=== PATIENT | female | born 1995 | race African-American/Black ===

== ENCOUNTER 2016-11-14 04:05 | Emergency (ER) | payer OTHER ==
[~2016-11-14] VITALS: Ht 167.6 cm; Wt 72.6 kg
[2016-11-14 05:11] LABS: BILIRUBIN,URINE NEGATIVE (NEG); GLUCOSE,URINE NEGATIVE (NEG); NITRITE,URINE NEGATIVE (NEG); PROTEIN,URINE NEGATIVE (NEG-TRACE); UROBILINOGEN,URINE 0.2 mg/dL (0.2 mg/dL)
[2016-11-14 05:17] LABS: RBC,URINE 0 /HPF (0-2); SQUAMOUS EPITHELIAL CELL,UR MOD /LPF; WBC,URINE 0 /HPF (0-4)
[2016-11-14 05:18] LABS: BACTERIA,URINE FEW /HPF (0-FEW)
[2016-11-14 05:35] LABS: BASO % 1 % (0-3); EOS % 1 % (0-3); HEMATOCRIT 39.1 % (36.0-47.0); HEMOGLOBIN 13.6 g/dL (12.0-15.5); LYMPH # 3.9 x10^3/uL (1.0-4.8); LYMPH % 43 % (24-48); MEAN CORPUSCULAR HEMOGLOBIN 32 pg (25-35); MEAN CORPUSCULAR HGB CONC 35 g/dL (31-37); MEAN CORPUSCULAR VOLUME 92 fL (79-100); MONO % 5 % (0-9); NEUT % 51 % (31-73); PLATELET COUNT 192 x10^3/uL (140-400); RED BLOOD COUNT 4.24 x10^6/uL (3.50-5.40); RED CELL DISTRIBUTION WIDTH 13.3 % (11.5-14.5)
[2016-11-14 05:37] LABS: BARBITURATES NEG (NEG); BENZODIAZEPINES NEG (NEG); CANNABINOIDS POS (NEG); COCAINE NEG (NEG); METHADONE NEG (NEG); OPIATES NEG (NEG); PHENCYCLIDINE NEG (NEG)
[2016-11-14 05:58] LABS: ALBUMIN 3.6 g/dL (3.4-5.0); ALBUMIN/GLOBULIN RATIO 1.1 (1.0-1.7); CALCIUM 8.9 mg/dL (8.5-10.1); CREATININE 0.9 mg/dL (0.6-1.0); GFR 93.9; TOTAL BILIRUBIN 0.1 mg/dL (0.2-1.0); TOTAL PROTEIN 6.8 g/dL (6.4-8.2)
[2016-11-14 06:01] LABS: POTASSIUM 3.3 mmol/L (3.5-5.1)
--- NOTE | 2016-11-14 06:16 | EKG ---
[facility] [address] [place] [address] Test Date: 2016-11-14 Test Time: 05:17:18 Pat Name: ELOY MCKENNA Department: Room: Gender: F Horticulture Worker: : 1995 Requested By: DEIDRE PEREZ Order Number: [id number] Reading MD: Jesus Euceda Measurements Intervals [place] Rate: 80 P: 46 [place]: 164 QRS: 37 QRSD: 78 T: 41 QT: 362 QTc: 421 Interpretive Statements SINUS RHYTHM Electronically Signed On 11-21-2016 11:26:34 CDT by Jesus Euceda
[2016-11-14 06:30] VITALS: BP 101/54
[2016-11-14] MEDS ORDERED: POTASSIUM CHLORIDE 20 MEQ/15 ML ORAL LIQUID. PO ONE (06:30)
--- NOTE | 2016-11-14 08:01 | ED.ADGEN ---
Past Medical History Past Medical History: Diabetes-Type II, Other Additional Past Medical Histor: BACK AND SHOULDER PAIN Past Surgical History: Alcohol Use: None Drug Use: None Adult General Chief Complaint Chief Complaint: HYPOGLYCEMIA HPI HPI Patient is a 21 year old woman, history of type 1 diabetes mellitus, for which she uses an insulin pump, who presents the emergency department via EMS with report of hypoglycemia. Per EMS report, the patient reported to the nurse at her place of employment, and stated that she was feeling shaky. Patient's blood glucose was noted to be 32 at that time. Patient did receive oral glucose solution, repeat blood sugar was in the 40s. Patient received a second oral glucose from EMS. Patient remained alert and oriented 4 throughout this episode , is denying any inciting factors are events, states that since she has started working, she has been experiencing low blood sugars rather frequently, has not yet followed up with her primary care provider for adjustment of her insulin pump. She denies any chest pain or shortness breath, fevers or chills, any nausea or vomiting, any weakness, numbness, tingling, urinary complaints, possibility of , or other concerning history. States she is feeling well this time, is eating a box lunch in the emergency department. Review of Systems Review of Systems Constitutional: Denies fever or chills. [] Generalized weakness and shakiness, consistent with previous episodes of hypoglycemia. Eyes: Denies change in visual acuity. [] HENT: Denies nasal congestion or sore throat. [] Respiratory: Denies cough or shortness of breath. [] Cardiovascular: Denies chest pain or edema. [] GI: Denies abdominal pain, nausea, vomiting, bloody stools or diarrhea. [] : Denies dysuria. [] Musculoskeletal: Denies back pain or joint pain. [] Integument: Denies rash. [] Neurologic: Denies headache, focal weakness or sensory changes. [] Endocrine: Denies polyuria or polydipsia. [] Lymphatic: Denies swollen glands. [] Psychiatric: Denies depression or anxiety. [] Current Medications Current Medications Current Medications Medications (Trade) Dose Ordered Sig/Ruchi Start Time Stop Time Status Last Admin Dose Admin Potassium Chloride (KCl Oral Soln) 40 meq 1X ONCE 11/14/16 06:30 11/14/16 06:31 DC 11/14/16 06:42 40 MEQ Allergies Allergies Allergies Coded Allergies Type Severity Reaction Last Updated Verified No Known Drug Allergies 11/24/14 No Physical Exam Physical Exam Constitutional: Well developed, well nourished, no acute distress, non-toxic appearance. [] HENT: Normocephalic, atraumatic, bilateral external ears normal, oropharynx moist, no oral exudates, nose normal. [] Eyes: PERRLA, EOMI, conjunctiva normal, no discharge. [] Neck: Normal range of motion, no tenderness, supple, no stridor. [] Cardiovascular:Heart rate regular rhythm, no murmur, S1, S2, no rubs or gallops. [] Lungs & Thorax: Bilateral breath sounds clear to auscultation, no wheezing, rhonchi, rales. No chest or crepitus or tenderness. [] Abdomen: Bowel sounds normal, soft, no tenderness, no masses, no rebound, rigidity, no guarding, no pulsatile masses. [] Skin: Warm, dry, no erythema, no rash. [] Back: No tenderness, no CVA tenderness. [] Extremities: No tenderness, no cyanosis, no clubbing, ROM intact, no edema. Negative Homans sign. [] Neurologic: Alert and oriented X 3, normal motor function, normal sensory function, no focal deficits noted. [] Psychologic: Affect normal, judgement normal, mood normal. [] Current Patient Data Vital Signs Vital Signs Date Time Temp Pulse Resp B/P (MAP) Pulse Ox O2 Delivery O2 Flow Rate FiO2 11/14/16 06:30 86 22 101/54 (70) 99 Room Air 11/14/16 04:07 97.6 97.6 Lab Values Laboratory Tests Test 11/14/16 04:13 11/14/16 04:48 11/14/16 05:15 POC Urine HCG, Qualitative Hcg negative (Negative) Urine Collection Type Unknown Urine Color Yellow Urine Clarity Clear Urine pH 6.0 Urine Specific [place] 1.015 Urine Protein Negative mg/dL (NEG-TRACE) Urine Glucose (UA) Negative mg/dL (NEG) Urine Ketones (Stick) Negative mg/dL (NEG) Urine Blood Negative (NEG) Urine Nitrite Negative (NEG) Urine Bilirubin Negative (NEG) Urine Urobilinogen Dipstick 0.2 mg/dL (0.2 mg/dL) Urine Leukocyte Esterase Negative (NEG) Urine RBC 0 /HPF (0-2) Urine WBC 0 /HPF (0-4) Urine Squamous Epithelial Cells Mod /LPF Urine Bacteria Few /HPF (0-FEW) Urine Opiates Screen Neg (NEG) Urine Methadone Screen Neg (NEG) Urine Barbiturates Neg (NEG) Urine Phencyclidine Screen Neg (NEG) Urine Amphetamine/Methamphetamine Neg (NEG) Urine Benzodiazepines Screen Neg (NEG) Urine Cocaine Screen Neg (NEG) Urine Cannabinoids Screen Pos (NEG) Urine Ethyl Alcohol Neg (NEG) White Blood Count 9.0 x10^3/uL (4.0-11.0) Red Blood Count 4.24 x10^6/uL (3.50-5.40) Hemoglobin 13.6 g/dL (12.0-15.5) Hematocrit 39.1 % (36.0-47.0) Mean Corpuscular Volume 92 fL (79-100) Mean Corpuscular Hemoglobin 32 pg (25-35) Mean Corpuscular Hemoglobin Concent 35 g/dL (31-37) Red Cell Distribution Width 13.3 % (11.5-14.5) Platelet Count 192 x10^3/uL (140-400) Neutrophils (%) (Auto) 51 % (31-73) Lymphocytes (%) (Auto) 43 % (24-48) Monocytes (%) (Auto) 5 % (0-9) Eosinophils (%) (Auto) 1 % (0-3) Basophils (%) (Auto) 1 % (0-3) Neutrophils # (Auto) 4.6 x10^3uL (1.8-7.7) Lymphocytes # (Auto) 3.9 x10^3/uL (1.0-4.8) Monocytes # (Auto) 0.5 x10^3/uL (0.0-1.1) Eosinophils # (Auto) 0.1 x10^3/uL (0.0-0.7) Basophils # (Auto) 0.0 x10^3/uL (0.0-0.2) Sodium Level 140 mmol/L (136-145) Potassium Level 3.3 mmol/L (3.5-5.1) L Chloride Level 101 mmol/L (98-107) Carbon Dioxide Level 29 mmol/L (21-32) Anion Gap 10 (6-14) Blood Urea Nitrogen 9 mg/dL (7-20) Creatinine 0.9 mg/dL (0.6-1.0) Estimated GFR (Cockcroft-Gault) 93.9 BUN/Creatinine Ratio 10 (6-20) Glucose Level 131 mg/dL (70-99) H Calcium Level 8.9 mg/dL (8.5-10.1) Total Bilirubin 0.1 mg/dL (0.2-1.0) L Aspartate Amino Transferase (AST) 15 U/L (15-37) Alanine Aminotransferase (ALT) 15 U/L (14-59) Alkaline Phosphatase 72 U/L (46-116) Total Protein 6.8 g/dL (6.4-8.2) Albumin 3.6 g/dL (3.4-5.0) Albumin/Globulin Ratio 1.1 (1.0-1.7) Laboratory Tests 11/14/16 05:15 Laboratory Tests 11/14/16 05:15 EKG EKG EC: Sinus rhythm, heart rate 80 beats are minute, upright axis, QTC of 421, VA 164, QRS is 78, no ST elevations or depressions, mild baseline artifact noted, as interpreted by me. [] Radiology/Procedures Radiology/Procedures Not indicated.[] Course & Med Decision Making Course & Med Decision Making Pertinent Labs and Imaging studies reviewed. (See chart for details) Patient's insulin pump discontinued upon arrival to the emergency department. Patient alert and oriented, denying all complaints in the emergency department, stating that she's been having episodes of hypoglycemia recently, since she began working. Patient denies any other concerning symptoms or complaints. Patient is taking by mouth without issue in the ED. Repeat Accu-Chek is 131, laboratory studies obtained which not reveal any concerning findings, test was negative, as was urinalysis. Repeat Accu-Chek after eating a box lunch an additional snack in the ED was 217. Patient was instructed to reinitiate her insulin pump at this time. Patient instructed to follow-up with her primary care provider today to schedule prompt evaluation for adjustment of her insulin pump as needed as she's been experiencing these episodes of hypoglycemia. Patient voiced understanding and agreement, was discharged home in stable condition with plan, instructions, and precautions as discussed. Dragon Disclaimer Dragon Disclaimer This electronic medical record was generated, in whole or in part, using a voice recognition dictation system. Departure Impression: Primary Impression: Hypoglycemia Additional Impression: Type 1 diabetes mellitus Disposition: HOME, SELF-CARE Condition: IMPROVED Problem Qualifiers DEIDRE PEREZ DO Nov 14, 2016 08:01
== END 2016-11-14 07:02 | disposition home or self-care (01) ==
LOC: ER 04:05
DX: E10.649 Type 1 diabetes mellitus with hypoglycemia without coma (principal); R53.1 Weakness; Z96.41 Presence of insulin pump (external) (internal)
CPT/HCPCS: 36415; 80053; 80307; 81001; 81025; 82962; 85025; 93005; 99285-25; G0479

== ENCOUNTER 2016-12-04 09:05 | Emergency (ER) | payer OTHER ==
[~2016-12-04] VITALS: Ht 162.6 cm; Wt 80.7 kg
[2016-12-04] MEDS ORDERED: IV NORMAL SALINE 1000ML BAG 1,000 ML IV SCH (09:53)
--- NOTE | 2016-12-04 09:57 | PHYS DOC ---
Past Medical History Past Medical History: Diabetes-Type II, Other Additional Past Medical Histor: BACK AND SHOULDER PAIN Past Surgical History: Alcohol Use: None Drug Use: None Adult General Chief Complaint Chief Complaint: MULTIPLE COMPLAINTS HPI HPI Patient is a 21 year old female who presents with complaint of abdominal pain and vomiting. The patient's symptoms have been present for over the past day but worsened this morning. Patient states that she is having severe pain along her lower abdomen that radiates into her pelvis. Patient notes that she has been having yellow thick discharge from her vagina. Patient also has been having vomiting and has been unable to tolerate solids or liquids. Patient states that she is diabetic and her blood sugar has been running high over the past 2-3 days. Patient states that she takes NovoLog and is also on an insulin pump. Patient rates the pain as 10 out of 10. Patient has not taken any medications to help with her symptoms. Review of Systems Review of Systems Constitutional: Subjective fever, chills[] Eyes: Denies change in visual acuity, redness, or eye pain [] HENT: Denies nasal congestion or sore throat [] Respiratory: Denies cough or shortness of breath [] Cardiovascular: Denies chest pain or edema[] GI: Nausea, vomiting, lower abdominal pain, denies bloody stools or diarrhea [] : Dysuria, vaginal discharge[] Musculoskeletal: Denies back pain or joint pain [] Integument: Denies rash or skin lesions [] Neurologic: Denies headache, focal weakness or sensory changes [] Current Medications Current Medications Current Medications Medications (Trade) Dose Ordered Sig/Ruchi Start Time Stop Time Status Last Admin Dose Admin Fentanyl Citrate (Fentanyl 2ml Vial) 50 mcg PRN Q15MIN PRN 12/04/16 10:00 12/05/16 09:59 12/04/16 10:27 50 MCG Ondansetron HCl (Zofran) 4 mg 1X ONCE 12/04/16 10:00 12/04/16 10:01 DC 12/04/16 10:25 4 MG Sodium Chloride 1,000 ml @ 1,000 mls/hr Q1H 12/04/16 09:53 12/04/16 10:52 DC 12/04/16 10:24 1,000 MLS/HR Valacyclovir HCl (Valtrex) 1,000 mg 1X STAT 12/04/16 10:45 12/04/16 10:49 DC Allergies Allergies Allergies Coded Allergies Type Severity Reaction Last Updated Verified No Known Drug Allergies 11/24/14 No Physical Exam Physical Exam Constitutional: Alert, afebrile, appears in moderate discomfort. [] HENT: Normocephalic, atraumatic, bilateral external ears normal, oropharynx moist, no oral exudates, nose normal. [] Eyes: PERRLA, EOMI, conjunctiva normal, no discharge. [] Neck: Normal range of motion, no tenderness, supple, no stridor. [] Cardiovascular:Heart rate regular rhythm, no murmur [] Lungs & Thorax: Bilateral breath sounds clear to auscultation [] Abdomen: Bowel sounds normal, soft, suprapubic tenderness to palpation with guarding, no rebound tenderness, no masses, no pulsatile masses. Pelvic: Multiple open erosions on erythematous base along bilateral labia minora and at inferior introitus, mild cervical motion tenderness to palpation, midline tenderness on bimanual exam, no adnexal tenderness[] Skin: Warm, dry, no erythema, no rash. [] Back: No tenderness, no CVA tenderness. [] Extremities: No tenderness, no cyanosis, no clubbing, ROM intact, no edema. [] Neurologic: Alert and oriented X 3, normal motor function, normal sensory function, no focal deficits noted. [] Current Patient Data Vital Signs Vital Signs Date Time Temp Pulse Resp B/P (MAP) Pulse Ox O2 Delivery O2 Flow Rate FiO2 12/04/16 10:27 17 Lab Values Laboratory Tests Test 12/04/16 09:02 12/04/16 09:17 12/04/16 09:27 12/04/16 09:34 POC Urine HCG, Qualitative Hcg negative (Negative) Glucose (Fingerstick) 343 mg/dL (70-99) H Urine Collection Type Unknown Urine Color Yellow Urine Clarity Clear Urine pH 5.5 Urine Specific [place] >=1.030 Urine Protein Negative mg/dL (NEG-TRACE) Urine Glucose (UA) >=1000 mg/dL (NEG) Urine Ketones (Stick) 40 mg/dL (NEG) Urine Blood Large (NEG) Urine Nitrite Negative (NEG) Urine Bilirubin Negative (NEG) Urine Urobilinogen Dipstick 0.2 mg/dL (0.2 mg/dL) Urine Leukocyte Esterase Trace (NEG) Urine RBC 11-20 /HPF (0-2) Urine WBC 5-10 /HPF (0-4) Urine Squamous Epithelial Cells Few /LPF Urine Bacteria Few /HPF (0-FEW) White Blood Count 8.1 x10^3/uL (4.0-11.0) Red Blood Count 4.28 x10^6/uL (3.50-5.40) Hemoglobin 13.4 g/dL (12.0-15.5) Hematocrit 40.0 % (36.0-47.0) Mean Corpuscular Volume 93 fL (79-100) Mean Corpuscular Hemoglobin 31 pg (25-35) Mean Corpuscular Hemoglobin Concent 34 g/dL (31-37) Red Cell Distribution Width 12.8 % (11.5-14.5) Platelet Count 175 x10^3/uL (140-400) Neutrophils (%) (Auto) 83 % (31-73) H Lymphocytes (%) (Auto) 11 % (24-48) L Monocytes (%) (Auto) 6 % (0-9) Eosinophils (%) (Auto) 0 % (0-3) Basophils (%) (Auto) 0 % (0-3) Neutrophils # (Auto) 6.7 x10^3uL (1.8-7.7) Lymphocytes # (Auto) 0.9 x10^3/uL (1.0-4.8) L Monocytes # (Auto) 0.5 x10^3/uL (0.0-1.1) Eosinophils # (Auto) 0.0 x10^3/uL (0.0-0.7) Basophils # (Auto) 0.0 x10^3/uL (0.0-0.2) Sodium Level 137 mmol/L (136-145) Potassium Level 4.2 mmol/L (3.5-5.1) Chloride Level 97 mmol/L (98-107) L Carbon Dioxide Level 24 mmol/L (21-32) Anion Gap 16 (6-14) H Blood Urea Nitrogen 13 mg/dL (7-20) Creatinine 1.2 mg/dL (0.6-1.0) H Estimated GFR (Cockcroft-Gault) 67.4 BUN/Creatinine Ratio 11 (6-20) Glucose Level 345 mg/dL (70-99) H Calcium Level 9.3 mg/dL (8.5-10.1) Total Bilirubin 0.5 mg/dL (0.2-1.0) Aspartate Amino Transferase (AST) 14 U/L (15-37) L Alanine Aminotransferase (ALT) 22 U/L (14-59) Alkaline Phosphatase 82 U/L (46-116) Total Protein 7.7 g/dL (6.4-8.2) Albumin 4.1 g/dL (3.4-5.0) Albumin/Globulin Ratio 1.1 (1.0-1.7) Lipase 61 U/L (73-393) L Urine Opiates Screen Neg (NEG) Urine Methadone Screen Neg (NEG) Urine Barbiturates Neg (NEG) Urine Phencyclidine Screen Neg (NEG) Urine Amphetamine/Methamphetamine Pos (NEG) Urine Benzodiazepines Screen Neg (NEG) Urine Cocaine Screen Neg (NEG) Urine Cannabinoids Screen Neg (NEG) Urine Ethyl Alcohol Neg (NEG) Laboratory Tests 12/04/16 09:34 Laboratory Tests 12/04/16 09:34 Microbiology 12/04/16 Wet Prep - Final, Complete EKG EKG Not performed[] Radiology/Procedures Radiology/Procedures Not performed[] Course & Med Decision Making Course & Med Decision Making Pertinent Labs and Imaging studies reviewed. (See chart for details) Patient was treated with Valtrex, Rocephin, and azithromycin in the emergency department. Herpes simplex PCR was ordered and results will be pending at time of discharge. Patient has discrete lesions of the labia that are consistent with genital herpes. Advised patient to inform any sexual partners of need for medical evaluation as they we'll also need to be treated for this infection. Rocephin and azithromycin were given due to possible presence of coinfection. Recommended follow-up with primary doctor in the 5-7 days for reevaluation. Advised return emergency department for any worsening symptoms. Patient voiced understanding and in agreement with treatment plan. Dragon Disclaimer Dragon Disclaimer This electronic medical record was generated, in whole or in part, using a voice recognition dictation system. Departure Departure Impression: Primary Impression: Genital herpes Additional Impressions: Pelvic inflammatory disease Methamphetamine abuse Disposition: 01 HOME, SELF-CARE Condition: IMPROVED Referrals: UNKNOWN PCP NAME (PCP) Patient Instructions: Genital Herpes, Pelvic Inflammatory Disease Additional Instructions: Follow-up to primary doctor in 5-7 days for reevaluation. Return to emergency department for any worsening symptoms. Scripts Ibuprofen (IBUPROFEN) 600 Mg Tablet 600 MG PO Q6-8HRS Y for PAIN, #30 TAB Prov: JOSHUA POLK MD 12/04/16 Valacyclovir Hcl (VALTREX) 1,000 Mg Tablet 1 TAB PO BID, #20 TAB Prov: JOSHUA POLK MD 12/04/16 Problem Qualifiers Primary Impression: Genital herpes Herpes simplex infection site: vulvovaginitis Qualified Codes: A60.04 - Herpesviral vulvovaginitis JOSHUA POLK MD Dec 04, 2016 09:57
[2016-12-04] MEDS ORDERED: fentaNYL PF VIAL 100 MCG/2 ML VIAL IV PRN (10:00)
[2016-12-04] MEDS ORDERED: ONDANSETRON PF 4 MG/2 ML VIAL. IV ONE (10:00)
[2016-12-04 10:17] LABS: BASO % 0 % (0-3); EOS % 0 % (0-3); HEMOGLOBIN 13.4 g/dL (12.0-15.5); LYMPH # 0.9 x10^3/uL (1.0-4.8); LYMPH % 11 % (24-48); MEAN CORPUSCULAR HEMOGLOBIN 31 pg (25-35); MEAN CORPUSCULAR HGB CONC 34 g/dL (31-37); MEAN CORPUSCULAR VOLUME 93 fL (79-100); MONO % 6 % (0-9); NEUT % 83 % (31-73); PLATELET COUNT 175 x10^3/uL (140-400); RED BLOOD COUNT 4.28 x10^6/uL (3.50-5.40); RED CELL DISTRIBUTION WIDTH 12.8 % (11.5-14.5); WHITE BLOOD COUNT 8.1 x10^3/uL (4.0-11.0)
[2016-12-04 10:19] LABS: BILIRUBIN,URINE NEGATIVE (NEG); GLUCOSE,URINE >=1000 mg/dL (NEG); NITRITE,URINE NEGATIVE (NEG); PH,URINE 5.5; PROTEIN,URINE NEGATIVE (NEG-TRACE); UROBILINOGEN,URINE 0.2 mg/dL (0.2 mg/dL)
[2016-12-04 10:24] LABS: CALCIUM 9.3 mg/dL (8.5-10.1); CREATININE 1.2 mg/dL (0.6-1.0); GFR 67.4; POTASSIUM 4.2 mmol/L (3.5-5.1)
[2016-12-04 10:26] LABS: BARBITURATES NEG (NEG); BENZODIAZEPINES NEG (NEG); CANNABINOIDS NEG (NEG); COCAINE NEG (NEG); METHADONE NEG (NEG); OPIATES NEG (NEG); PHENCYCLIDINE NEG (NEG)
[2016-12-04 10:30] LABS: ALBUMIN 4.1 g/dL (3.4-5.0); ALBUMIN/GLOBULIN RATIO 1.1 (1.0-1.7); TOTAL BILIRUBIN 0.5 mg/dL (0.2-1.0); TOTAL PROTEIN 7.7 g/dL (6.4-8.2)
[2016-12-04 10:44] LABS: BACTERIA,URINE FEW /HPF (0-FEW); SQUAMOUS EPITHELIAL CELL,UR FEW /LPF
[2016-12-04] MEDS ORDERED: valACYclovir 500 MG TABLET. PO STA (10:45)
[2016-12-04] MEDS ORDERED: AZITHROMYCIN 250 MG TABLET. PO ONE (11:00)
[2016-12-04] MEDS ORDERED: cefTRIAXone IM 250 MG VIAL IM ONE (11:00)
[2016-12-04] MEDS ORDERED: VALA10005 PO (11:09)
[2016-12-04] MEDS ORDERED: IBUP-1007 PO (11:10)
[2016-12-04 11:58] VITALS: BP 130/75
--- NOTE | 2016-12-06 12:50 | VNOTE ---
CALL BACK NOTE CALL BACK Microbiology 12/04/16 Wet Prep - Final, Complete 12/04/16 Urine Culture - Final, Complete 12/04/16 Urine Culture Result 1 (SAIGE) - Final, Complete 12/04/16 Urine Culture Result 2 (SAIGE) - Final, Complete Patient was notified by phone in regards to urine being positive for strep.. Patient is not at the current time. She is not having any urinary symptoms. Spoke with patient in regards to following up to primary care physician for further evaluation if she should have any concerns with urinary tract infections or if she is in the process of becoming . Patient agrees with treatment regimens and follow-up recommendations. KATIE FELICIANO SURGICAL SALES REPRESENTATIVE Dec 06, 2016 12:50
== END 2016-12-04 11:59 | disposition home or self-care (01) ==
LOC: ER 09:05
DX: A60.04 Herpesviral vulvovaginitis (principal); N73.9 Female pelvic inflammatory disease, unspecified; F15.10 Other stimulant abuse, uncomplicated; E11.9 Type 2 diabetes mellitus without complications
CPT/HCPCS: 36415; 80053; 80307; 81001; 81025; 82962; 83690; 85025; 87086; 87491; 87591; 96361; 96372; 96374; 96375; 99284; J0696; J2405; J3010; J7030; Q0111; Q0144; G0479

== ENCOUNTER 2017-08-21 18:03 | Emergency (ER) | payer OTHER, BC ==
[2017-08-21 18:41] LABS: POC GLUCOSE 101 mg/dL (70-99)
[2017-08-21 18:41] LABS: POC GLUCOSE 134 mg/dL (70-99)
== END 2017-08-21 19:20 | disposition home or self-care (01) ==
LOC: ER 18:03
DX: O24.011 Pre-existing type 1 diabetes mellitus, in pregnancy, first trimester (principal); E16.2 Hypoglycemia, unspecified; Z3A.00 Weeks of gestation of pregnancy not specified; F15.10 Other stimulant abuse, uncomplicated
CPT/HCPCS: 82962; 99283

== ENCOUNTER 2017-10-22 05:38 | Observation (INO) | payer OTHER ==
[2017-10-22] MEDS: IV RINGERS,LACTATED 1000ML 1,000 ML IV (05:50)
== END 2017-10-22 06:10 | disposition left against medical advice (07) ==
LOC: 3 SO LND 05:38
DX: O99.89 Other specified diseases and conditions complicating pregnancy, childbirth and the puerperium (principal); M54.9 Dorsalgia, unspecified; Z3A.23 23 weeks gestation of pregnancy
CPT/HCPCS: G0378; G0379; J7120